=== PATIENT | female | born 1995 | race Caucasian/White ===

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

== ENCOUNTER 2018-04-14 09:20 | Outpatient (CLI) | payer MEDICAID ==
[2018-04-14 09:56] LABS: APPEARANCE,URINE CLOUDY; BILIRUBIN,URINE NEGATIVE (NEGATIVE); COLOR,URINE YELLOW; GLUCOSE, URINE >=500 mg/dL (NEGATIVE); KETONES,URINE NEGATIVE (NEGATIVE); LEUKOCYTE ESTERASE,URINE TRACE (NEGATIVE); NITRITE,URINE NEGATIVE (NEGATIVE); PROTEIN,URINE 30 mg/dL (NEGATIVE); URINE SPECIFIC GRAVITY 1.016; UROBILINOGEN,URINE NEGATIVE mg/dL (<2.0)
[2018-04-14 10:14] LABS: URINE AMPHETAMINES SCREEN NEGATIVE; URINE BARBITURATES SCREEN NEGATIVE; URINE BENZODIAZEPINES SCREEN NEGATIVE; URINE COCAINE SCREEN NEGATIVE; URINE MARIJUANA (THC) SCREEN NEGATIVE; URINE METHADONE SCREEN NEGATIVE; URINE PHENCYCLIDINE SCREEN NEGATIVE
[2018-04-14 10:18] LABS: UR PRO/CREAT RATIO RESULT 0.3 mg/mg (0.0-0.2); URINE CREATININE 87.1 mg/dL (16-327); URINE PROTEIN 28.4 mg/dL (<12)
[2018-04-14 10:18] LABS: ABSOLUTE EOSINOPHILS # (AUTO) 0.1 10^3/uL (0.0-0.6); ABSOLUTE LYMPHOCYTES (AUTO) 1.3 10^3/uL (0.5-4.7); ABSOLUTE MONOCYTES (AUTO) 0.7 10^3/uL (0.1-1.4); ABSOLUTE NEUT (AUTO) 6.8 10^3/uL (1.7-8.2); BASOPHILS % (AUTO) 0.2 % (0-2); HEMATOCRIT 33.6 % (36.0-47.0); HEMOGLOBIN 11.3 g/dL (12.0-15.5); LYMPHOCYTES % (AUTO) 14.8 % (13-45); MEAN CORPUSCULAR HEMOGLOBIN 28.9 pg (27.0-33.4); MEAN CORPUSCULAR HGB CONC 33.6 g/dL (32.0-36.0); MEAN CORPUSCULAR VOLUME 86 fl (80-97); MONOCYTES % (AUTO) 8.1 % (3-13); PLATELET COUNT 184 10^3/uL (150-450); RED BLOOD COUNT 3.91 10^6/uL (3.72-5.28); RED CELL DISTRIBUTION WIDTH 18.2 % (11.5-14.0); SEGMENTED NEUTROPHILS % (AUTO) 75.9 % (42-78); TOTAL CELLS COUNTED % (AUTO) 100 %
[2018-04-14 10:36] LABS: ALANINE AMINOTRANSFERASE 32 U/L (9-52); ALBUMIN 2.9 g/dL (3.5-5.0); ALKALINE PHOSPHATASE 157 U/L (38-126); ANION GAP 7 (5-19); ASPARTATE AMINO TRANSFERASE 24 U/L (14-36); BILIRUBIN,DIRECT 0.1 mg/dL (0.0-0.4); BILIRUBIN,TOTAL 0.2 mg/dL (0.2-1.3); BLOOD UREA NITROGEN 9 mg/dL (7-20); CALCIUM 9.4 mg/dL (8.4-10.2); CARBON DIOXIDE 19 mmol/L (22-30); CHLORIDE 113 mmol/L (98-107); GLUCOSE 131 mg/dL (75-110); POTASSIUM 4.3 mmol/L (3.6-5.0); SODIUM 138.8 mmol/L (137-145); TOTAL PROTEIN 5.4 g/dL (6.3-8.2); URIC ACID 3.7 mg/dL (2.5-6.2)
--- NOTE | 2018-04-14 11:33 | Non Stress Test Report ---
Non Stress Test Datetime Report Generated by CPN: 04/14/2018 11:33 DEMOGRAPHIC EGA NST: 38.5 INDICATION Indication for Study: Ordered by Provider MONITORING Monitor Explained: Monitor Explained; Test Explained; Patient Verbalized Understanding Time on Monitor: 04/14/2018 09:35 Time off Monitor: 04/14/2018 11:10 NST Duration: 95 NST INTERVENTIONS NST Interventions: PO Hydration Physician Notified NST: Dr. James BABY A: [id number] BABY A Movement : Present Contraction Frequency : 6-11 FHR Baseline : 150 Accelerations : 15X15 Decelerations : None Variability : Moderate 6-25bpm NST Review: Meets Criteria for Reactive NST NST Review and Verified By : HAILEY Yañez Results: Reactive NST REPORT Report Trigger: Send Report
== END 2018-04-14 11:24 | disposition home or self-care (01) ==
LOC: LC 09:20
PROVIDERS: ATTEND Obstetrics & Gynecology Gynecology
PROC: 4A1HXCZ Monitoring of Products of Conception, Cardiac Rate, External Approach (ICD-10-PCS; principal; 2018-04-14)
DX: O14.93 Unspecified pre-eclampsia, third trimester (principal); Z3A.38 38 weeks gestation of pregnancy
CPT/HCPCS: 36415; 59025; 80053; 80307; 81001; 82570; 83036; 83615; 84156; 84550; 85025

== ENCOUNTER 2018-04-16 11:19 | Inpatient (IN) | payer MEDICAID ==
--- NOTE | 2018-04-16 11:53 | Admission Physical ---
Datetime Report Generated by CPN: 04/16/2018 11:53 CURRENT ADMISSION Chief Complaint: Other Chief Complaint Other: suspected preeclampsia Indication for Induction: PreEclampsia Admit Impression : Term, Intrauterine ; Intact Membranes; Induction of Labor Admit Plan: Admit to Unit; Initiate Labor Induction Protocol ALLERGIES Medication Allergies: No Medication Allergies: No Known Allergies (04/14/2018) Latex: No Latex Allergies Food Allergies: n/a Environmental Allergies: n/a OBSTETRICAL HISTORY EDC: 04/23/2018 00:00 : 2 Para: 0 Term: 0 : 0 Ectopic: 0 Livin Cesareans: 0 VBACs: 0 Multiple Births: 0 Gestational Diabetes: Yes Rh Sensitization: No Incompetent Cervix: No RODY: No Infertility: No ART Treatment: No Uterine Anomaly: No IUGR: No Hx Previous C/S: No Macrosomia: No Hx Loss/Stillborn: No PIH: No Hx : No Placenta Previa/Abruption: No Depression/PP Depression: Yes PTL/PROM: No Post Hemorrhage: No Current Procedures: Ultrasound; NST Obstetrical History Comments: G1- 8 weeks miscarriage G2- Current SEE RECORDS Alcohol: No Marijuana : No Cocaine: No Other Illicit Drugs: No Cigarettes: Never Smoker. 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 Surgery: No Heart Disease: No Hosp/Surgery: No Autoimmune Disorder: No Anesthetic Complications: No Kidney Disease: No Abnormal Pap Smear: No Neuro/Epilepsy: No Psychiatric Disorders: No Other Medical Diseases: No Hepatitis/Liver Disease: No Significant Family History: No Varicosities/Phlebitis: No Trauma/Violence : No Thyroid Dysfunction: No INFECTIOUS HISTORY Gonorrhea: No Genital Herpes: No Chlamydia: No Tuberculosis: No Syphilis: No Hepatitis: No HIV/AIDS Exposure: No Rash or Viral Illness: No HPV: No PHYSICAL EXAM General: Normal HEENT: Normal Neurologic: Normal Thyroid: Normal Heart: Normal Lungs: Normal Breast: Deferred Back: Normal Abdomen: Normal Genitourinary Exam: Normal Extremities: Normal DTRs: Normal Pelvic Type: Adequate Vital Signs: Reviewed VAGINAL EXAM Dilatation: 1 Effacement: 70 Station: -2 MEMBRANES Pooling: Negative Membranes: Intact FETUS A EGA: 39.0 Monitoring: External US FHR- Baseline: 140 Variability: Minimal - Undetectable to <=5bpm Decelerations: None FHR Category: Category I Presentation: Vertex Admit Comment: proteinuria and edema at 39 wks. PLANS FOR LABOR AND DELIVERY Labor and Delivery: None Pain Management: Epidural Feeding Preference: Breast Benefit of Breast Feed Discussed: Yes Circumcision: Yes INFORMED CONSENT Signature: with User ID: [email or web address]
[2018-04-16] MEDS ORDERED: MAG HYDROX/AL HYDROX/SIMETH SUSP 30 ML UDCUP PO PRN (13:12)
[2018-04-16] MEDS ORDERED: RINGERS SOLUTION,LACTATED 300 ML IV ONE (13:12)
[2018-04-16] MEDS ORDERED: OXYTOCIN/NORMAL SALINE 20 UNIT/1,000 ML RTUINJ IV PRN (13:12)
[2018-04-16] MEDS ORDERED: DINOPROSTONE 10 MG VAGINAL INSERT.SR PV ONE (13:12)
[2018-04-16] MEDS ORDERED: ACETAMINOPHEN 325 MG TABLET PO PRN (13:12)
[2018-04-16] MEDS: RINGERS SOLUTION,LACTATED 1,000 ML IV PRN (13:52)
[2018-04-16] MEDS ORDERED: DINOPROSTONE 10 MG VAGINAL INSERT.SR ONE (14:02)
[2018-04-16 14:12] LABS: ABSOLUTE EOSINOPHILS # (AUTO) 0.1 10^3/uL (0.0-0.6); ABSOLUTE LYMPHOCYTES (AUTO) 1.2 10^3/uL (0.5-4.7); ABSOLUTE MONOCYTES (AUTO) 0.7 10^3/uL (0.1-1.4); ABSOLUTE NEUT (AUTO) 7.1 10^3/uL (1.7-8.2); BASOPHILS % (AUTO) 0.2 % (0-2); EOSINOPHILS % (AUTO) 0.7 % (0-6); HEMATOCRIT 34.1 % (36.0-47.0); HEMOGLOBIN 11.4 g/dL (12.0-15.5); LYMPHOCYTES % (AUTO) 13.7 % (13-45); MEAN CORPUSCULAR HEMOGLOBIN 29.1 pg (27.0-33.4); MEAN CORPUSCULAR HGB CONC 33.6 g/dL (32.0-36.0); MEAN CORPUSCULAR VOLUME 87 fl (80-97); MONOCYTES % (AUTO) 7.5 % (3-13); PLATELET COUNT 176 10^3/uL (150-450); RED BLOOD COUNT 3.93 10^6/uL (3.72-5.28); RED CELL DISTRIBUTION WIDTH 17.8 % (11.5-14.0); SEGMENTED NEUTROPHILS % (AUTO) 77.9 % (42-78); TOTAL CELLS COUNTED % (AUTO) 100 %; WHITE BLOOD COUNT 9.1 10^3/uL (4.0-10.5)
[2018-04-16 20:15] LABS: ALANINE AMINOTRANSFERASE 26 U/L (9-52); ALBUMIN 3.4 g/dL (3.5-5.0); ALKALINE PHOSPHATASE 167 U/L (38-126); ANION GAP 6 (5-19); ASPARTATE AMINO TRANSFERASE 33 U/L (14-36); BILIRUBIN,DIRECT 0.2 mg/dL (0.0-0.4); BILIRUBIN,TOTAL 0.4 mg/dL (0.2-1.3); BLOOD UREA NITROGEN 11 mg/dL (7-20); CARBON DIOXIDE 22 mmol/L (22-30); CHLORIDE 111 mmol/L (98-107); GLUCOSE 83 mg/dL (75-110); POTASSIUM 4.7 mmol/L (3.6-5.0); URIC ACID 3.9 mg/dL (2.5-6.2)
[2018-04-16] MEDS ORDERED: ZOLPIDEM TARTRATE 5 MG TABLET ONE (22:54)
[2018-04-16] MEDS: ZOLPIDEM TARTRATE 5 MG TABLET PO PRN (22:58)
[2018-04-17] MEDS: RINGERS SOLUTION,LACTATED 1,000 ML IV PRN ×2 (01:21→18:02)
[2018-04-17] MEDS ORDERED: MISOPROSTOL 0.2 MG TABLET ONE (02:15)
[2018-04-17] MEDS ORDERED: LIDOCAINE 1% INJ-PF (10 MG/ML) 30 ML SDV ONE (02:15)
[2018-04-17] MEDS ORDERED: OXYTOCIN 10 UNIT/ML VIAL ONE (02:15)
[2018-04-17] MEDS ORDERED: OXYTOCIN/NORMAL SALINE 20 UNIT/1,000 ML RTUINJ ONE ×2 (02:15→22:41)
[2018-04-17] MEDS ORDERED: NALBUPHINE HCL INJ 10 MG/1 ML AMPULE ONE (09:18)
[2018-04-17] MEDS ORDERED: NALBUPHINE HCL INJ 10 MG/1 ML AMPULE INJ ONE (09:21)
[2018-04-17] MEDS ORDERED: FENTANYL/BUPIVACAINE/NS/PF 300 MCG/150 ML RTUINJ EPI ONE (12:37)
[2018-04-17] MEDS ORDERED: BUPIVACAINE HCL 0.25 % INJ/PF (2.5 MG/1 ML) 30 ML VIAL ONE (12:37)
[2018-04-17] MEDS ORDERED: EPHEDRINE SULFATE INJ 50 MG/1 ML AMPULE ONE (12:37)
[2018-04-17] MEDS ORDERED: FUROSEMIDE INJ/PF 40 MG/4 ML SDV ONE (16:01)
[2018-04-17] MEDS ORDERED: FUROSEMIDE INJ/PF 20 MG/2 ML SDV IV ONE (18:39)
[2018-04-17] MEDS ORDERED: ACETAMINOPHEN 325 MG TABLET ONE (23:38)
[2018-04-17] MEDS ORDERED: AMPICILLIN SOD INJ 2 GM VIAL ONE (23:38)
[2018-04-18] MEDS ORDERED: GENTAMICIN SULFATE INJ 80 MG/2 ML VIAL IV ONE (00:42)
[2018-04-18] MEDS ORDERED: MAGNESIUM SULFATE 4 GM/100 ML RTUPB IV ONE ×2 (00:43→00:47)
[2018-04-18] MEDS ORDERED: MAGNESIUM SULFATE 20 GM/500 ML RTUINJ IV PRN (00:43)
[2018-04-18] MEDS ORDERED: PROMETHAZINE HCL INJ 25 MG/1 ML VIAL IV PRN ×2 (00:44→08:30)
[2018-04-18] MEDS ORDERED: MAGNESIUM HYDROXIDE SUSP 30 ML UDCUP PO PRN (00:44)
[2018-04-18] MEDS ORDERED: BENZOCAINE/MENTHOL AEROSOL SPRAY 56 ML TOP PRN (00:44)
[2018-04-18] MEDS ORDERED: OXYTOCIN/NORMAL SALINE 20 UNIT/1,000 ML RTUINJ IV PRN (00:44)
[2018-04-18] MEDS ORDERED: PROMETHAZINE HCL 25 MG TABLET PO PRN (00:44)
[2018-04-18] MEDS ORDERED: ACETAMINOPHEN WITH CODEINE #3 TABLET PO PRN ×2 (00:44)
[2018-04-18] MEDS ORDERED: DIPH/PERTUSS(ACELL)/TETANUS VAC/PF 0.5 ML SYR (>=10YO) IM PRN ×2 (00:44→08:30)
[2018-04-18] MEDS ORDERED: NA PHOS,M-B/NA PHOS,DI-BA (ADULT) 133 ML ENEMA PR PRN (00:44)
[2018-04-18] MEDS ORDERED: MEASLES,MUMPS&RUBELLA VACC/PF 0.5 ML VIAL SUBCUT PRN ×2 (00:44→08:30)
[2018-04-18] MEDS ORDERED: GLYCERIN/WITCH HAZEL LEAF 1 EACH MED..PAD TP PRN (00:44)
[2018-04-18] MEDS ORDERED: PROMETHAZINE HCL 25 MG SUPP.RECT PR PRN (00:44)
[2018-04-18] MEDS ORDERED: ACETAMINOPHEN 650 MG SUPP.RECT PR PRN (00:44)
[2018-04-18] MEDS ORDERED: DIBUCAINE 1% OINTMENT 56 GM TP PRN (00:44)
[2018-04-18] MEDS ORDERED: DIPHENHYDRAMINE HCL 25 MG CAPSULE PO PRN (00:44)
[2018-04-18] MEDS ORDERED: PSEUDOEPHEDRINE HCL 30 MG TABLET PO PRN (00:44)
[2018-04-18] MEDS ORDERED: GENTAMICIN SULFATE INJ 80 MG/2 ML VIAL IV PRN (00:50)
[2018-04-18] MEDS ORDERED: MAGNESIUM SULFATE 20 GM/500 ML RTUINJ IV ONE (00:51)
[2018-04-18] MEDS ORDERED: AMPICILLIN SODIUM 2 GM in NORMAL SALINE 100 ML IV ONE (01:00)
[2018-04-18] MEDS ORDERED: GENTAMICIN SULFATE 180 MG in DEXTROSE 5%-WATER 100 ML IV ONE (01:00)
[2018-04-18] MEDS ORDERED: GENTAMICIN SULFATE INJ 80 MG/2 ML VIAL ONE ×2 (01:45→01:49)
[2018-04-18] MEDS ORDERED: AMPICILLIN SOD INJ 2 GM VIAL ONE ×2 (03:03→08:36)
[2018-04-18] MEDS ORDERED: IBUPROFEN 800 MG TABLET ONE (03:21)
[2018-04-18] MEDS ORDERED: GENTAMICIN SULFATE INJ 80 MG/2 ML VIAL IV SCH (06:00)
[2018-04-18] MEDS ORDERED: AMPICILLIN SODIUM 2 GM in NORMAL SALINE 100 ML IV SCH (06:00)
--- NOTE | 2018-04-18 06:44 | Delivery Summary ---
Del Sum A-C Datetime Report Generated by CPN: 04/18/2018 06:44 DELIVERY PERSONNEL DELIVERY PERSONNEL: [id number] Delivery Doctor:: Nubia Parisi MD Labor and Delivery Nurse:: Bella López RNtransitional care liaison Nurse:: Khushboo Madden RN Nursery Nurse:: Maggie James RN Engine Generator Assembler/HAND TRUCKER: Amanda Souza, ST MATERNAL INFORMATION Delivery Anesthesia: Epidural Medications During Delivery: Tylenol 975mg Medications After Delivery: Pitocin Drip 20 Units/1000ml NSS Meds After Delivery Comment: Gentamycin, Ampicillin Estimated Blood Loss (ml): 250 Maternal Complications: Maternal Fever; Other Complication Details: preeclampsia Provider Comments: VMI in [place] with 30sec shoulder dystocia. Loose nuchal cord easily reduced. Shoulder dystocia resolved with Gentle downward and suprapubic pressure. Nursery present for delivery. Placenta delivered intact spontaneously. FF at U. Good hemostasis after repair of 2nd degree laceration. Baby to nursery. Mother stable upon provider leaving the room. LABOR SUMMARY EDC: 04/23/2018 00:00 No. Babies in Womb: 1 Attempted: No Labor Anesthesia: Epidural LABOR INFORMATION Reason for Induction: Pre-Eclampsia Onset of Labor: 04/17/2018 12:35 Complete Dilatation: 04/17/2018 20:00 Cervical Ripening Agents: Cervidil Oxytocin: Induction Group B Beta Strep: Negative Antibiotics # of Doses: 1 Steroids Given: None Reason Steroids Not Administered: Not Applicable MEMBRANES Membranes Rupture Method: Artificial Rupture of Membranes: 04/17/2018 09:54 Length of Rupture (hr): 14.12 Amniotic Fluid Color: Clear Amniotic Fluid Amount: Small Amniotic Fluid Odor: Normal STAGES OF LABOR Stage 1 hr: 7 Stage 1 min: 25 Stage 2 hr: 4 Stage 2 min: 1 Stage 3 hr: 0 Stage 3 min: 3 Total Time in Labor hr: 11 Total Time in Labor min: 29 VAGINAL DELIVERY Episiotomy: None Laceration #1: Perineal Laceration Extension #1: Second Degree Laceration Repair: Yes Laceration Repair Note: 2nd degree perineal laceration repaired in usual fashion Sponge Count Correct: Yes Sharps Count Correct: Yes BABY A INFORMATION Infant Delivery Date/Time: 04/18/2018 00:01 Method of Delivery: Vaginal Born in Route : No : N/A Forceps: N/A Vacuum Extraction: N/A Shoulder Dystocia : Yes PRESENTATION/POSITION BABY A Presentation: Cephalic Cephalic Presentation: Vertex Vertex Position: Left Occipital Anterior Breech Presentation: N/A PLACENTA INFORMATION BABY A Placenta Delivery Time : 04/18/2018 00:04 Placenta Method of Delivery: Spontaneous Placenta Status: Delivered SCORES BABY A Heart Rate 1 min: >100 bpm Resp Effort 1 min: Absent Reflex Irritability 1 min: No Response Muscle Tone 1 min: Flaccid Color 1 min: Blue/Pale Resuscitation Effort 1 min: Tactile Stimulation; PPV/NCPAP SCORE 1 MIN: 2 Heart Rate 5 min: >100 bpm Resp Effort 5 min: Good Cry Reflex Irritability 5 min: Cough or Sneeze or Pulls Away Muscle Tone 5 min: Some Flexion of Extremities Color 5 min: Blue/Pale Resuscitation Effort 5 min: Tactile Stimulation; PPV/NCPAP SCORE 5 MIN: 7 Heart Rate 10 min: >100 bpm Resp Effort 10 min: Good Cry Reflex Irritability 10 min: Cough or Sneeze or Pulls Away Muscle Tone 10 min: Active Motion Color 10 min: Body [place], Extremities Blue Resuscitation Effort 10 min: Tactile Stimulation SCORE 10 MIN: 9 INFANT INFORMATION BABY A Gestational Age at Delivery: 39.2 Gestational Status: Full Term- 39- 40.6 Weeks Outcome : Liveborn Condition : Stable Sex: Male IDENTIFICATION BABY A Verification Date/Time: 04/18/2018 00:09 ID Band Number: [id number] Mother's Name Verified: Yes RN Verifying : rn misael Additional Verifying Personnel: sadia madden WEIGHT/LENGTH BABY A Infant Birthweight (gm): 3761 Infant Weight (lb): 8 Infant Weight (oz): 5 Infant Length (in): 21.00 Length (cm): 53.34 CORD INFORMATION BABY A No. Cord Vessels: 3 Nuchal Cord : Around Neck x1, Loose Cord Blood Taken: Yes-For Storage (Mom's Blood type +) (Annotations: Data stored by CPN on behalf of user) Suction: Mouth; Nose ASSESSMENT BABY A Skin to Skin: No Skin to Skin Time (min): 0 BABY B INFORMATION : N/A SIGNATURES Signature: with User ID: [email or web address]
--- NOTE | 2018-04-18 07:00 | L&D Progress Notes ---
PROGRESS NOTES Datetime Report Generated by CPN: 04/18/2018 06:59 PROGRESS NOTE Comment: diuresing well on magnesium. 350, 750, 1000 out. Pt feeling better. Will likely be able to come off magnesium at 12 hours after delivery. BPs under control. Patient doing well now pp. VAGINAL EXAM Dilatation: 1 Effacement: 70 Station: -2 LAST VAGINAL EXAM-NURSING Dilitation: 10.0 Dilitation: 8.0 Dilitation: 7.0 Dilitation: 7.0 Dilitation: 4.0 Dilitation: 1.0 Dilitation: 1.0 Dilitation: 1.0 Effacement: 100 Effacement: 80 Effacement: 75 Effacement: 75 Effacement: 50 Effacement: 25 Effacement: 25 Effacement: 50 Station: 1 Station: 0 Station: -2 Station: -2 Station: -3 Station: -3 Station: -3 Station: -2 Contractions: RN at bedside pushing with patient and continuously monitoring tracing and performing appropriate interventions Contractions: RN at bedside pushing with patient and continuously monitoring tracing and performing appropriate interventions Contractions: RN at bedside pushing with patient and continuously monitoring tracing and performing appropriate interventions Contractions: RN at bedside pushing with patient and continuously monitoring tracing and performing appropriate interventions Contractions: RN at bedside pushing with patient and continuously monitoring tracing and performing appropriate interventions Contractions: utd, due to positioning while pushing Contractions: RN at bedside pushing with patient and continuously monitoring tracing and performing appropriate interventions Contractions: RN at bedside pushing with patient and continuously monitoring tracing and performing appropriate interventions Contractions: RN at bedside pushing with patient and continuously monitoring tracing and performing appropriate interventions Contractions: one contraction at 140, baby tolerated. Contractions: TOCO adjusted Contractions: Irregular ctx pattern Contractions: Pt denies feeling ctx's; abdomen moderate upon palpation. Contractions: Pt denies feeling ctx's; abdomen moderate upon palpation. Contractions: Pt denies feeling ctx's; abdomen moderate upon palpation. Contractions: Irregular ctx pattern MEMBRANES Pooling: Negative Membranes: Intact FETUS A : 39.0 Presentation: Vertex SIGNATURE SIGNATURE: [id number] SIGNATURE: [id number] SIGNATURE: ,[id number] SIGNATURE: [id number] Signature: with User ID: [email or web address]
[2018-04-18] MEDS: IBUPROFEN 800 MG TABLET PO SCH ×3 (08:26→21:34)
[2018-04-18] MEDS: AMPICILLIN SODIUM 2 GM in NORMAL SALINE 100 ML IV SCH ×3 (08:42→21:34)
[2018-04-18] MEDS: GENTAMICIN SULFATE 140 MG in DEXTROSE 5%-WATER 100 ML IV SCH ×2 (09:25→17:12)
[2018-04-18] MEDS ORDERED: PRENATAL VITAMIN W DHA CAPSULE PO ONE (09:29)
[2018-04-18] MEDS ORDERED: DOCUSATE SODIUM 100 MG CAPSULE ONE (09:29)
[2018-04-18] MEDS ORDERED: SENNOSIDES/DOCUSATE 8.6-50 MG 1 EACH TABLET ONE (09:29)
[2018-04-18] MEDS ORDERED: FAMOTIDINE 20 MG TABLET ONE (09:29)
[2018-04-18] MEDS ORDERED: FERROUS SULFATE 325 MG TABLET PO ONE (09:29)
[2018-04-18] MEDS: FERROUS SULFATE 325 MG TABLET PO SCH ×2 (09:33→17:12)
[2018-04-18] MEDS: SENNOSIDES/DOCUSATE 8.6-50 MG 1 EACH TABLET PO SCH (09:33)
[2018-04-18] MEDS: FAMOTIDINE 20 MG TABLET PO SCH ×2 (09:33→21:34)
[2018-04-18] MEDS: DOCUSATE SODIUM 100 MG CAPSULE PO SCH ×2 (09:33→17:12)
[2018-04-18] MEDS: PRENATAL VITAMIN W DHA CAPSULE PO SCH (09:33)
--- NOTE | 2018-04-18 09:59 | L&D Progress Notes ---
PROGRESS NOTES Datetime Report Generated by CPN: 04/18/2018 09:58 PROGRESS NOTE Comment: Doing well, on phone, feels good, scant bleeding, vs stable, eating well FETUS C SIGNATURE: [id number];[id number];13,[id number];[id number] Assignment: Marcela Mayer MD Signature: with User ID: [email or web address] : with User ID: [email or web address]
--- NOTE | 2018-04-18 11:46 | Warning Signs in Babies ---
VOD Warning Signs Datetime Report Generated by [facility]: 04/18/2018 11:46 VOD#608 -Warning Signs in Babies: Viewed with Parent(s)/Family (04/14/2018 09:27:Ryan Gross RN)
[2018-04-19] MEDS: GENTAMICIN SULFATE 140 MG in DEXTROSE 5%-WATER 100 ML IV SCH ×2 (02:03→19:12)
[2018-04-19] MEDS: AMPICILLIN SODIUM 2 GM in NORMAL SALINE 100 ML IV SCH ×2 (03:30→10:01)
[2018-04-19] MEDS: IBUPROFEN 800 MG TABLET PO SCH ×3 (05:30→22:01)
[2018-04-19 07:24] LABS: HEMATOCRIT 27.7 % (36.0-47.0); MEAN CORPUSCULAR HEMOGLOBIN 28.3 pg (27.0-33.4); MEAN CORPUSCULAR HGB CONC 32.9 g/dL (32.0-36.0); MEAN CORPUSCULAR VOLUME 86 fl (80-97); PLATELET COUNT 174 10^3/uL (150-450); RED BLOOD COUNT 3.21 10^6/uL (3.72-5.28); RED CELL DISTRIBUTION WIDTH 18.9 % (11.5-14.0)
[2018-04-19 07:40] LABS: HEMOGLOBIN 9.1 g/dL (12.0-15.5)
[2018-04-19] MEDS: SENNOSIDES/DOCUSATE 8.6-50 MG 1 EACH TABLET PO SCH (10:00)
[2018-04-19] MEDS: FERROUS SULFATE 325 MG TABLET PO SCH ×2 (10:00→18:28)
[2018-04-19] MEDS: FAMOTIDINE 20 MG TABLET PO SCH ×2 (10:00→22:01)
[2018-04-19] MEDS: PRENATAL VITAMIN W DHA CAPSULE PO SCH (10:00)
[2018-04-19] MEDS: DOCUSATE SODIUM 100 MG CAPSULE PO SCH ×2 (10:00→18:30)
--- NOTE | 2018-04-19 10:13 | PDOC PROGRESS REPORT ---
Addendum entered and electronically signed by BETTE RODRIGUES CNM 04/19/18 10:22: Subjective-OB Progress Note for:: 04/19/18 - PP Day#1 today, no complaints. . Baby in the NICU. Pt had been on Magnessium Sulfate and Antibiotics yesterday. Pt denies headache or fever today. Original Note: Subjective-OB Progress Note for:: 04/19/18 - PP Day #1, Doing well, denies headache. O+ Rubella Immune, . Hx of Pre-Eclampsia, BP's normal now. Physical Exam (OB) Vital Signs: Temp Pulse Resp BP Pulse Ox 98.3 F 101 H 16 123/72 100 04/19/18 08:56 04/19/18 08:56 04/19/18 08:56 04/19/18 08:56 04/19/18 08:56 Intake & Output 04/18/18 04/19/18 04/20/18 06:59 06:59 06:59 Intake Total 1000 2110.5 Balance 1000 2110.5 - General General Appearance: Appears well, Alert In distress: None - PIH/Pre-Eclampsia DTR's: 1 + Clonus: Negative Headache: Absent Epigastric Pain: No Visual Changes: No - Lochia Lochia Amount: Small 10-25 ml Lochia Color: Rubra/Red - Abdomen Description: Soft, Round Hernia Present: No Fundal Description: Firm Fundal Height: u/u - u/2 - Respiratory Respiratory Status: No respiratory distress - Abdominal Distension: No distension - Genitourinary Genitourinary Note: voiding - Extremities Upper extremity: Normal inspection Lower extremities: Edema - 1+ - Neurological Cognition: Normal Orientation: AAOx4 Neurological Note: denies headache - Psychological Associated symptoms: Normal affect, Normal mood - Skin Skin Temperature: Warm Skin Moisture: Dry Objective-Diagnostic Laboratory: 04/19/18 06:57 04/16/18 19:48 04/19/18 06:57 WBC 13.0 H RBC 3.21 L Hgb 9.1 L D Hct 27.7 L MCV 86 MCH 28.3 MCHC 32.9 RDW 18.9 H Plt Count 174 Assessment and Plan(PN) - Assessment and Plan (1) Anemia, Is this a current diagnosis for this admission?: Yes (2) Obstetrical laceration, second degree Is this a current diagnosis for this admission?: Yes (3) Pre-eclampsia Qualifiers: Trimester: unspecified trimester Qualified Code(s): O14.90 - Unspecified pre-eclampsia, unspecified trimester Is this a current diagnosis for this admission?: Yes (4) Shoulder dystocia, delivered, current hospitalization Is this a current diagnosis for this admission?: Yes - Time Spent with Patient Time with patient: Less than 15 minutes Medications reviewed and adjusted accordingly: Yes - Disposition Anticipated Discharge: Home Within: within 24 hours
[2018-04-20] MEDS: ZOLPIDEM TARTRATE 5 MG TABLET PO PRN (00:03)
[2018-04-20] MEDS: IBUPROFEN 800 MG TABLET PO SCH ×3 (06:10→23:56)
[2018-04-20] MEDS: DOCUSATE SODIUM 100 MG CAPSULE PO SCH ×2 (10:23→18:33)
[2018-04-20] MEDS: FERROUS SULFATE 325 MG TABLET PO SCH ×2 (10:23→18:33)
[2018-04-20] MEDS: SENNOSIDES/DOCUSATE 8.6-50 MG 1 EACH TABLET PO SCH (10:23)
[2018-04-20] MEDS: PRENATAL VITAMIN W DHA CAPSULE PO SCH (10:23)
[2018-04-20] MEDS: FAMOTIDINE 20 MG TABLET PO SCH ×2 (10:23→23:56)
--- NOTE | 2018-04-20 11:12 | PDOC PROGRESS REPORT ---
Subjective-OB Progress Note for:: 04/20/18 Subjective: 22yo G2 now P1 s/p ppd 2. Ambulating and voiding without difficulty. Reports headache on and off since delivery and fatigue. Also swelling on legs not improving. Denies other s/s of pre-e. Baby remains in NICU and on formula now due to unsuccessful latch. No concerns today Physical Exam (OB) Vital Signs: Temp Pulse Resp BP Pulse Ox 97.9 F 90 16 132/83 H 99 04/20/18 08:15 04/20/18 08:15 04/20/18 08:15 04/20/18 08:15 04/20/18 08:15 Intake & Output 04/19/18 04/20/18 04/21/18 06:59 06:59 06:59 Intake Total 2110.5 700 Balance 2110.5 700 - General General Appearance: Appears well In distress: None - PIH/Pre-Eclampsia DTR's: 2 + Clonus: Negative Headache: Present Epigastric Pain: No Visual Changes: No - Episiotomy/Laceration Site Condition: Well Approximated - Lochia Lochia Amount: Scant < 10 ml Lochia Color: Rubra/Red - Abdomen Description: Soft Hernia Present: No Fundal Description: Firm, Midline Fundal Height: u/u - u/2 - Respiratory Respiratory Status: No respiratory distress - Extremities Upper extremity: Normal inspection Lower extremities: Edema - pitting bilatery Foot: Edema - Neurological Cognition: Normal Orientation: AAOx4 - Psychological Associated symptoms: Normal affect, Normal mood, Tearful Objective-Diagnostic Laboratory: 04/19/18 06:57 04/16/18 19:48 Assessment and Plan(PN) - Assessment and Plan (1) Anemia, Is this a current diagnosis for this admission?: Yes Plan: increase dietary iron and FeSO4 BID (2) Shoulder dystocia, delivered, current hospitalization Is this a current diagnosis for this admission?: Yes Plan: delivered, baby remains in NICU at this time (3) Obstetrical laceration, second degree Is this a current diagnosis for this admission?: Yes (4) Pre-eclampsia Qualifiers: Trimester: unspecified trimester Qualified Code(s): O14.90 - Unspecified pre-eclampsia, unspecified trimester Is this a current diagnosis for this admission?: Yes Plan: Continue to monitor for s/s of pre-e/decompensation. Lasix ordered as recommended by Dr. Parisi who is the OB electronic field service engineer today. - Time Spent with Patient Time with patient: 15-25 minutes Medications reviewed and adjusted accordingly: Yes - Disposition Anticipated Discharge: Home Within: within 24 hours - reviewed with Dr. Parisi who agrees with plan of care
[2018-04-20] MEDS: FUROSEMIDE 20 MG TABLET PO SCH (11:44)
[2018-04-21] MEDS: ZOLPIDEM TARTRATE 5 MG TABLET PO PRN (00:01)
[2018-04-21] MEDS: IBUPROFEN 800 MG TABLET PO SCH (06:22)
[2018-04-21] MEDS: DOCUSATE SODIUM 100 MG CAPSULE PO SCH (09:22)
[2018-04-21] MEDS: FERROUS SULFATE 325 MG TABLET PO SCH (09:22)
[2018-04-21] MEDS: PRENATAL VITAMIN W DHA CAPSULE PO SCH (09:22)
[2018-04-21] MEDS: SENNOSIDES/DOCUSATE 8.6-50 MG 1 EACH TABLET PO SCH (09:22)
[2018-04-21] MEDS: FUROSEMIDE 20 MG TABLET PO SCH (09:23)
[2018-04-21] MEDS: FAMOTIDINE 20 MG TABLET PO SCH (09:23)
[2018-04-21 09:29] VITALS: BP 135/86
--- NOTE | 2018-04-21 11:02 | PDOC DISCHARGE SUMMARY ---
Final Diagnosis Discharge Date: 04/21/18 - Final Diagnosis (1) Anemia, Is this a current diagnosis for this admission?: Yes (2) Obstetrical laceration, second degree Is this a current diagnosis for this admission?: Yes (3) Pre-eclampsia Is this a current diagnosis for this admission?: Yes (4) Shoulder dystocia, delivered, current hospitalization Is this a current diagnosis for this admission?: Yes (5) Vaginal delivery Is this a current diagnosis for this admission?: Yes Discharge Data - Discharge Medication Home Medications: 95/Iron Fum/Folic/Dha [ + Dha Combo Pack] 1 each PO DAILY 04/14/18 Reason(s) for Admission: Induction of Labor, Obstetric Complications Procedures: NST Intrapartum Procedure(s): Spontaneous Vaginal Delivery Intrapartum Procedure Note: Shoulder dystocia 30 sec Complication(s): Laceration-Perineal Laceration-Degree: 2nd - Data Baby 1 Male at 1 minute: 2 at 5 minutes: 9 Home with Mother: Yes Complications: No - Diagnosis Test Laboratory: Temp Pulse Resp BP Pulse Ox 97.7 F 76 18 135/86 H 100 04/21/18 09:19 04/21/18 09:19 04/21/18 09:19 04/21/18 09:19 04/21/18 09:19 04/16/18 04/19/18 13:49 06:57 RBC 3.93 3.21 L Hgb 11.4 L 9.1 L D Hct 34.1 L 27.7 L - Discharge information/Instructions Discharge Activity: Balance Activity w/Rest, Pelvic Rest Discharge Diet: Regular Disposition: HOME, SELF-CARE Follow up with: [facility] in: 1, Weeks
== END 2018-04-21 14:40 | disposition home or self-care (01) | DRG 807 ==
LOC: LC 11:19 → LR 12:34 → EEVIPCON 12:34 → 2S 04-18 13:40
PROVIDERS: ADMIT Obstetrics & Gynecology; ATTEND Student in an Organized Health Care Education/Training Program
PROC: 10E0XZZ Delivery of Products of Conception, External Approach (ICD-10-PCS; principal; 2018-04-18)
PROC: 0KQM0ZZ Repair Perineum Muscle, Open Approach (ICD-10-PCS; 2018-04-18)
DX: O14.94 Unspecified pre-eclampsia, complicating childbirth (principal); Z37.0 Single live birth; O24.429 Gestational diabetes mellitus in childbirth, unspecified control; O69.81X0 Labor and delivery complicated by cord around neck, without compression, not applicable or unspecified; O66.0 Obstructed labor due to shoulder dystocia; O70.1 Second degree perineal laceration during delivery; Z3A.39 39 weeks gestation of pregnancy
CPT/HCPCS: 36415; 80053; 83615; 84550; 85025; 85027; 86592; 86850; 86900; 86901; 94760; C1726; J0290; J1580; J1940; J2300; J2590; J3010; J3475; J3490